=== PATIENT | male | born 1995 | race Caucasian/White ===

== ENCOUNTER 2021-01-08 09:06 | Outpatient (CLI) | payer BC ==
[2021-01-08 18:44] LABS: SARS-CoV-2 PCR by NAA Not Detected (NotDetected)
== END 2021-01-08 09:07 | disposition home or self-care (01) ==
LOC: CSHLAB 09:06
PROVIDERS: ATTEND Podiatrist Foot & Ankle Surgery
DX: Z20.822 Contact with and (suspected) exposure to COVID-19 (principal); B07.0 Plantar wart
CPT/HCPCS: 87635; U0003; U0005

== ENCOUNTER 2021-01-14 09:12 | Outpatient (CLI) | payer BC ==
[2021-01-14 20:35] LABS: SARS-CoV-2 PCR by NAA Not Detected (NotDetected)
== END 2021-01-14 09:13 | disposition home or self-care (01) ==
LOC: CSHLAB 09:12
PROVIDERS: ATTEND Podiatrist Foot & Ankle Surgery
DX: Z20.822 Contact with and (suspected) exposure to COVID-19 (principal); B07.0 Plantar wart
CPT/HCPCS: 87635; U0003; U0005